=== PATIENT | male | born 1990 | race Caucasian/White ===

== ENCOUNTER 2018-03-26 09:07 | Day surgery (SDC) | payer MEDICAID ==
[2018-03-26] MEDS ORDERED: Acetaminophen-Codeine 300/30 mg Tab PO PRN (09:17)
[2018-03-26] MEDS ORDERED: Morphine 10 mg/5 ml Oral Soln PO PRN (09:19)
[2018-03-26] MEDS ORDERED: Dextrose 5%/0.45% NS 1,000 ML IV SCH (09:30)
[2018-03-26] MEDS ORDERED: Propofol 10 mg/ml Inj (20 ML) ONE (10:34)
[2018-03-26] MEDS ORDERED: Succinylcholine Chloride 20 mg/ml Syr (5 ml) IV ONE (10:34)
[2018-03-26] MEDS ORDERED: ceFAZolin IV 1 gm in Dextrose 2 GM/100 ML BAG IVPB ONE (10:34)
[2018-03-26] MEDS ORDERED: Midazolam 2 MG/2 ML VIAL ONE (10:35)
[2018-03-26] MEDS ORDERED: HYDROmorphone 0.5 mg/0.5 ml ISec IVP PRN (11:17)
[2018-03-26 12:38] VITALS: RESP 18
[2018-03-26 14:54] VITALS: BP 116/69; PULSE 64; TEMP 97.7; O2SAT 96
--- NOTE | 2018-03-28 10:35 | OP ---
PROCEDURE DATE: 03/26/2018 PREOPERATIVE DIAGNOSIS: Chronic tonsillitis. POSTOPERATIVE DIAGNOSIS: Chronic tonsillitis. PROCEDURE: Tonsillectomy. SIGNIFICANT FINDINGS: 2+ tonsils. DESCRIPTION OF PROCEDURE: The patient was brought into the room, placed in supine position. Anesthesia initiated through an ET tube. The patient was draped in usual manner. Mouth gag was placed in oral cavity, opened and suspended on the [employer] banquet captain usual manner. Right tonsil was grabbed, pulled medially. Incision was made in the anterior tonsillar pillar using coblation. Dissection was done between tonsil and tonsillar fossa using coblation until the tonsil was removed. Bleeding was controlled using coblation. Next, the other tonsil was grabbed, pulled medially. Incision was made in the anterior tonsillar pillar using coblation. Dissection was done between tonsil and tonsillar fossa using coblation until the tonsil was removed. Bleeding was controlled using coblation. Both tonsillar beds were rubbed vigorously with coblation wand. No bleeding was noted. Mouth gag was let down for 30 seconds, put back up, no bleeding was noted. Mouth gag was taken down and removed. The patient was taken off anesthesia and taken to recovery room in a stable manner. Murphy Rogers MD
== END 2018-03-26 13:15 | disposition home or self-care (01) ==
LOC: C.SDS 09:07
PROVIDERS: ATTEND Otolaryngology
DX: J35.01 Chronic tonsillitis (principal)
CPT/HCPCS: 42826; 88304; J0690; J2001; J2250; J2405; J2704; J3010; J7040

== ENCOUNTER 2018-03-28 11:02 | Emergency (ER) | payer MEDICAID ==
[2018-03-28 11:22] VITALS: BP 108/72; PULSE 89; RESP 20; TEMP 99.3; O2SAT 98
[2018-03-28] MEDS ORDERED: Sodium Chloride 0.9% 1,000 ML IV ONE (11:44)
[2018-03-28] MEDS ORDERED: Dexamethasone 4 mg/1 ml IVP STA (11:44)
[2018-03-28] MEDS ORDERED: Sodium Chloride 0.9% 1,000 ML ONE (11:54)
--- NOTE | 2018-03-28 12:00 | C.PDOC ---
History Of Present Illness 27 year old male presents to ED complaining of pain to his throat for 2 days. Patient had tonsillectomy on 03/26/18 and reports that Tylenol/codeine does not help relieve the pain. Patient denies any bleeding or fever. <Margarita Hammer - Last Filed: 03/28/18 14:07> <Nain Gross Jr. - Last Filed: 03/28/18 13:21> History Per: Patient History/Exam Limitations: None Onset/Duration Of Symptoms: Days Current Symptoms Are (Timing): Still Present <Margarita Hammer - Last Filed: 03/28/18 14:07> Time Seen by Provider: 03/28/18 11:30 Chief Complaint (Nursing): ENT Problem Past Medical History Vital Signs: Last Vital Signs Temp 99.3 F 03/28/18 11:14 Pulse 89 03/28/18 11:14 Resp 20 03/28/18 11:14 BP 108/72 03/28/18 11:14 Pulse Ox 98 03/28/18 12:05 <Nain Gross Jr. - Last Filed: 03/28/18 13:21> Reviewed: Historical Data, Nursing Documentation, Vital Signs Vital Signs: Last Vital Signs Temp 99.3 F 03/28/18 11:14 Pulse 89 03/28/18 11:14 Resp 20 03/28/18 11:14 BP 108/72 03/28/18 11:14 Pulse Ox 98 03/28/18 11:14 - Medical History PMH: No Chronic Diseases Surgical History: Tonsillectomy Family History: States: No Known Family Hx - Social History Hx Alcohol Use: No Hx Substance Use: No - Immunization History Hx Tetanus Toxoid Vaccination: No Hx Influenza Vaccination: No Hx Pneumococcal Vaccination: No <Margarita Hammer - Last Filed: 03/28/18 14:07> Review Of Systems Constitutional: Negative for: Fever, Weakness Eyes: Negative for: Redness ENT: Positive for: Throat Pain (No bleeding). Negative for: Ear Pain Cardiovascular: Negative for: Chest Pain Respiratory: Negative for: Cough, Shortness of Breath Gastrointestinal: Negative for: Abdominal Pain Musculoskeletal: Positive for: Neck Pain Neurological: Positive for: Headache. Negative for: Dizziness <Margarita Hammer - Last Filed: 03/28/18 14:07> Physical Exam - Physical Exam Appears: Well, Non-toxic, No Acute Distress Skin: Warm, Dry, No Rash Head: Atraumatic, Normacephalic Eye(s): bilateral: Normal Inspection Oral Mucosa: Moist Throat: Other (Uvula midline and mildly swollen; postrior pharynx has white patches/eschar bilaterally) Neck: Normal ROM Chest: Symmetrical Cardiovascular: Rhythm Regular, No Murmur Respiratory: Normal Breath Sounds, No Rales, No Rhonchi, No Wheezing Gastrointestinal/Abdominal: Soft, No Tenderness Extremity: Bilateral: Atraumatic, Normal Color And Temperature, Normal ROM Neurological/Psych: Oriented x3, Normal Speech Gait: Steady <Margarita Hammer - Last Filed: 03/28/18 14:07> ED Course And Treatment - Laboratory Results Result Diagrams: 03/28/18 12:30 03/28/18 12:30 <Nain Gross Jr. - Last Filed: 03/28/18 13:21> - Laboratory Results Result Diagrams: 03/28/18 12:30 03/28/18 12:30 O2 Sat by Pulse Oximetry: 98 (RA) Pulse Ox Interpretation: Normal <Margarita Hammer - Last Filed: 03/28/18 14:07> Medical Decision Making Medical Decision Making: Plan: --Bloodwork --IV Fluids --Decadron 11:46 -- Spoke with Dr. Rogers (ENT) and he recommended giving patient decadron. 13:17 -- Spoke with Dr. Rogers who states there is nothing further to do. Pain is expected and patient should continue his analgesics, and follow up in office. No need for antibiotics. <Margarita Hammer - Last Filed: 03/28/18 14:07> Disposition <Nain Gross Jr. - Last Filed: 03/28/18 13:21> Counseled Patient/Family Regarding: Studies Performed, Diagnosis, Need For Followup - Disposition Disposition Time: 13:22 - POA Present On Arrival: None <Margarita Hammer - Last Filed: 03/28/18 14:07> - Disposition Referrals: Murphy Rogers MD [Staff Provider] - Disposition: HOME/ ROUTINE Condition: GOOD Additional Instructions: Continue taking pain medicine as needed. Try ice chips, ice cream to help soothe. Drink plenty of fluids and follow up with Dr. Rogers as instructed. Instructions: Postoperative Pain (DC) Forms: [facility] (Irish) - Clinical Impression Clinical Impression: Post-op pain, Status post tonsillectomy - PA / FORESTRY PROFESSOR / Resident Statement MD/DO has reviewed & agrees with the documentation as recorded. - Scribe Statement The provider has reviewed the documentation as recorded by the Scribe Ashly Amanda All medical record entries made by the Iramibcorinna were at my direction and personally dictated by me. I have reviewed the chart and agree that the record accurately reflects my personal performance of the history, physical exam, medical decision making, and the department course for this patient. I have also personally directed, reviewed, and agree with the discharge instructions and disposition. <Margraita Hammer - Last Filed: 03/28/18 14:07>
[2018-03-28 12:37] LABS: HEMOGLOBIN 13.3 g/dL (12.0-18.0); MEAN CELL VOLUME 84.8 fL (80.0-94.0); MEAN CORPUSCULAR HEMOGLOBIN 29.2 pg (27.0-31.0); MEAN CORPUSCULAR HGB CONC 34.5 g/dL (33.0-37.0); MEAN PLATELET VOLUME 8.1 fL (7.2-11.7); RBC 4.53 Mil/uL (4.40-5.90); RED CELL DISTRIBUTION WIDTH 12.7 % (11.5-14.5); WHITE BLOOD COUNT 7.1 K/uL (4.8-10.8)
[2018-03-28 12:50] LABS: ALB/GLOB RATIO 1.4 (1.0-2.1); ALT/SGPT 25 U/L (21-72); AST/SGOT 15 U/L (17-59); BLOOD UREA NITROGEN 12 mg/dL (9-20); CALCIUM 7.8 mg/dl (8.6-10.4); GFR NON-AFRICAN AMERICAN > 60
== END 2018-03-28 13:50 | disposition home or self-care (01) ==
LOC: C.ER 11:02
DX: G89.18 Other acute postprocedural pain (principal); Z98.890 Other specified postprocedural states
CPT/HCPCS: 80053; 85027; 96361; 96374; 99284; J1100; J7030